=== PATIENT | female | born 1965 | race African-American/Black ===

== ENCOUNTER 2019-09-03 19:13 | Emergency (ER) | payer MEDICAID ==
[~2019-09-03] VITALS: Ht 175.3 cm; Wt 117.0 kg
[~2019-09-03 19:13] MED LIST: MOTRIN PO; TRAMADOL PO
[2019-09-04] MEDS ORDERED: KETOROLAC 30MG/ML VIAL IV STA (01:32)
[2019-09-04] MEDS ORDERED: ONDANSETRON HCL 4MG/2ML INJ IV STA (01:32)
[2019-09-04] MEDS ORDERED: MORPHINE SULFATE 4 MG/ML CPJ (NOT FOR IM USE) IV STA (01:32)
[2019-09-04 02:35] LABS: BASOPHILS % 0.5 % (0.0-2.0); EOSINOPHILS % 1.1 % (0.0-5.0); HEMATOCRIT. 32.8 % (36.0-48.0); HEMOGLOBIN. 11.1 g/dL (12.0-16.0); MEAN CORPUSCULAR HEMOGLOBIN 24.7 pg (28.0-32.0); MEAN CORPUSCULAR VOLUME 72.7 fL (81.0-99.0); MEAN PLATELET VOLUME 7.7 fl (7.4-10.4); MONOCYTES % 4.2 % (2.0-8.0); NEUTROPHILS % 53.2 % (40.0-76.0); PLATELET 420 x1000/uL (130-400); RED BLOOD CELL COUNT 4.51 mill/uL (4.2-5.4); RED CELL DISTRIBUTION WIDTH 15.7 % (11.6-14.6)
[2019-09-04 02:42] LABS: PROTHROMBIN TIME 10.5 sec (9.6-11.0)
[2019-09-04 02:44] LABS: CHLORIDE 106 mEq/L (98-107)
[2019-09-04] MEDS ORDERED: PIPERACILLIN/TAZ 3.375G PREMIX 50 ML IV SCH (03:15)
[2019-09-04] MEDS ORDERED: MORPHINE SULFATE 10 MG/ML CPJ IV ONE (09:30)
[2019-09-04] MEDS ORDERED: ONDANSETRON HCL 4MG/2ML INJ IV ONE (09:30)
[2019-09-04 09:44] VITALS: BP 178/96
== END 2019-09-04 10:30 | disposition short-term general hospital (02) ==
LOC: ER 19:13
DX: M65.841 Other synovitis and tenosynovitis, right hand (principal); D64.9 Anemia, unspecified; E11.9 Type 2 diabetes mellitus without complications; Z98.890 Other specified postprocedural states; Z90.710 Acquired absence of both cervix and uterus
CPT/HCPCS: 36415; 73120; 80053; 83605; 85025; 85610; 85651; 86141; 87040; 96365; 96366; 96375; 96376; 99291; J1885; J2270; J2405; J2543

== ENCOUNTER 2020-01-20 06:12 | Emergency (ER) | payer MEDICAID ==
[~2020-01-20] VITALS: Ht 175.3 cm; Wt 113.0 kg
[2020-01-20 06:30] VITALS: BP 141/81
== END 2020-01-20 12:57 | disposition home or self-care (01) ==
LOC: ER 06:12
DX: M79.601 Pain in right arm (principal); M25.561 Pain in right knee; E11.9 Type 2 diabetes mellitus without complications; Z79.899 Other long term (current) drug therapy; Z98.890 Other specified postprocedural states; Z90.710 Acquired absence of both cervix and uterus
CPT/HCPCS: 93971; 99284

== ENCOUNTER 2020-11-27 20:51 | Emergency (ER) | payer MEDICAID ==
[~2020-11-27] VITALS: Ht 175.3 cm; Wt 105.0 kg
[2020-11-27] MEDS ORDERED: LACTATED RINGERS 1,000 ML IV STA (22:22)
[2020-11-27] MEDS ORDERED: INSULIN REGULAR (HUMULIN R) 300UNITS/3ML VIAL IV ONE (22:30)
[2020-11-27 22:41] LABS: CLARITY URINE CLEAR (CLEAR); COLOR URINE YELLOW (YELLOW); KETONES URINE NEGATIVE (NEGATIVE); LEUKOCYTE ESTERASE URINE NEGATIVE (NEGATIVE); NITRITE URINE NEGATIVE (NEGATIVE); OCCULT BLOOD URINE 3+ (NEGATIVE); PROTEIN URINE NEGATIVE (NEGATIVE); UROBILINOGEN URINE 0.2 E.U./dL (0.2-1.0)
[2020-11-27 23:08] LABS: BASOPHILS % 1.4 % (0.0-2.0); EOSINOPHILS % 0.9 % (0.0-5.0); HEMOGLOBIN. 11.4 g/dL (12.0-16.0); LYMPHOCYTES % 45.7 % (20.0-50.0); MEAN CORPUSCULAR HEMOGLOBIN 24.6 pg (28.0-32.0); MEAN CORPUSCULAR VOLUME 73.4 fL (81.0-99.0); MEAN PLATELET VOLUME 8.7 fl (7.4-10.4); MONOCYTES % 4.6 % (2.0-8.0); NEUTROPHILS % 47.4 % (40.0-76.0); PLATELET 308 x1000/uL (130-400); RED BLOOD CELL COUNT 4.63 mill/uL (4.2-5.4); RED CELL DISTRIBUTION WIDTH 17.3 % (11.6-14.6)
[2020-11-27 23:25] LABS: CHLORIDE 101 mEq/L (98-107)
[2020-11-28] VITALS: BP 133/62
[2020-11-28] MEDS ORDERED: LACTATED RINGERS 1,000 ML IV SCH (00:07)
[2020-11-28] MEDS ORDERED: DIF15 MT (00:13)
[2020-11-28] MEDS ORDERED: INSULIN REGULAR (HUMULIN R) 300UNITS/3ML VIAL IV SCH (00:15)
== END 2020-11-28 02:02 | disposition home or self-care (01) ==
LOC: ER 20:51
DX: E11.65 Type 2 diabetes mellitus with hyperglycemia (principal); R00.0 Tachycardia, unspecified; R31.9 Hematuria, unspecified; M19.90 Unspecified osteoarthritis, unspecified site; D64.9 Anemia, unspecified; D72.829 Elevated white blood cell count, unspecified; Z90.710 Acquired absence of both cervix and uterus
CPT/HCPCS: 36415; 71045; 80048; 81003; 82962; 85025; 93005; 96365; 96367; 96375; 96376; 99285; J1815; Z7610